=== PATIENT | female | born 1990 | race Caucasian/White ===

== ENCOUNTER 2021-07-03 13:17 | Emergency (ER) | payer OTHER, SELFPAY ==
[2021-07-03 13:22] VITALS: BP 112/82; PULSE 99; RESP 18; TEMP 36.8; O2SAT 99
--- NOTE | 2021-07-03 13:22 | XR_ITS ---
WS: [id number] Exam: XR hand LT min 3V* [id number] Date/Time of Exam: 07/03/2021 1:22 PM Reason For Exam: injury There has been amputation of the distal end of the fifth finger to include the soft tissues and a sma ll portion of the distal tuft of the distal phalanx. No other bony injury is noted. No dislocation. XR/XR hand LT min 3V* [id number] IMPRESSION: 1. Amputation of the distal end of the fifth digit to include a tiny portion of the distal phalanx as well as the soft tissues.
--- NOTE | 2021-07-03 14:36 | W.ED.UPPEXIN ---
HPI - Extremity Injury (Upper) General: Chief Complaint: Wound/Laceration Stated Complaint: HAND INJURY Time Seen by Provider: 07/03/21 13:19 Source: patient Mode of arrival: EMS Limitations: no limitations History of Present Illness: Patient is a 30-year-old female presents to ED today for evaluation of a left fifth finger injury that she sustained just prior to arrival while at [facility]. Patient states she was in the restroom at [facility] and somehow the door slammed shut on her pinky finger causing a distal tip amputation. Tetanus is UTD. complaint: injury to: left and finger Onset (ago): hour(s) Place: other ([facility]) Relieving factors: none Context: laceration, crush and injury Associated symptoms: Reports no associated symptoms Review of Systems Musc: Reports: extremity pain (L 5th finger) Physical Exam Const: COMMON NORMALS: no acute distress, patient oriented x3, no limitations and alert Extremity: GENERAL: Yes normal exam except as noted LEFT UPPER EXTREMITY: Yes hand & digits (see below) Left hand and digits: Yes neurovascular exam (normal) OTHER: pt has an amputation of the distal portion of her L 5th finger; amputation involves most of palmar pad of finger and nail; her nail is intact and ripped from her nail fold; nail fold and nail bed without damage Neuro: COMMON NORMALS: patient oriented x3, moves all extremities, no focal motor deficits and no sensory deficits noted SENSORIUM/ORIENTATION: Yes alert Procedures Laceration Laceration 1: Site: hand (L 5th finger) Side (If applicable): left Size (cm): 1.5 Description: other (distal finger tip amputation) Depth: [id number] Local Anesthetic: lidocaine 1% (digital block) and bupivacaine 0.25% Amount of anesthesia used (mL): 3.0 Pre-repair: wound explored and irrigated extensively Skin layer closed with: nylon and vicryl (one vicry to anchor nail) Size (cm): 4-0 Number of sutures: 6 Technique: simple, interrupted Technique: simple, interrupted Course Vital Signs: Vital signs: Vital Signs Temperature 98.2 F 07/03/21 13:22 Pulse Rate 99 07/03/21 13:22 Respiratory Rate 18 07/03/21 13:22 Blood Pressure 112/82 07/03/21 13:22 Pulse Oximetry 99 07/03/21 13:22 MDM - Extremity Injury (Upper) Medical Decision Making Patient initially evaluated by Dr. Azevedo and care transferred to me as I would be performing reattachment of distal tip. XR shows scant bony involvement of distal tip. Discussed with patient options as far as attempting reattachment or leaving as is and having ortho/hand perform flap. Patient states she would like to attempt reattachment at this time. She was given IV abx here. Distal tip reattached with good cosmetic results at this time. Distal tip did look like it coud be viable. She is traveling back home to [place] today. Recommend prompt follow up with PCP for referral to ortho/hand for follow up. Will write for abx/pain meds. Wound care discussed at home. Lab Data Radiology Impressions Hand X-Ray 07/03/21 13:22 IMPRESSION: 1. Amputation of the distal end of the fifth digit to include a tiny portion of the distal phalanx as well as the soft tissues. Discharge Plan Discharge Patient Disposition: Home Clinical Impression: Partial traumatic amputation of left little finger through phalanx Qualifiers: Encounter type: initial encounter Qualified Code(s): S68.627A - Partial traumatic transphalangeal amputation of left little finger, initial encounter Condition: Stable Prescriptions: New hydrocodone-acetaminophen 5-325 mg tablet 1 tab PO .q4-6 PRN (Reason: pain) Qty: 14 0RF cephalexin 500 mg capsule 500 mg PO Q6H 7 Days Qty: 28 0RF Discharge Orders: Discharge ED (Routine); Ordered 07/03/21 Ordered By: Farzana Montero Patient Instructions: Finger Amputation (ED), Finger Laceration (ED), Opioid Safety Activity Restrictions/Additional Instructions: Keep wound/laceration clean with warm soap and water twice daily. Monitor for signs of infection such as redness, swelling, increased pain, or drainage. Please seek medical re-evaluation if these occur. If you received sutures today these will need to be removed (unless you were told by the provider that they are absorbable). The provider should have discussed with you the length of time until removal. As we discussed please follow-up with your primary care provider as soon as you return home for a referral to an orthopedic or hand surgeon for further evaluation. Coding Level of Care Code ED Type Caster for Almaz Kohler
[2021-07-03] MEDS: neomycin-poly-bacitracin oint 0.9 gm Pkt 1 APPLIC TOPICAL (14:46)
== END 2021-07-03 15:47 | disposition home or self-care (01) ==
PROVIDERS: Emergency Provider Physician Assistant
DX: S68.627A Partial traumatic transphalangeal amputation of left little finger, initial encounter (principal); W23.0XXA Caught, crushed, jammed, or pinched between moving objects, initial encounter
CPT/HCPCS: 12001; 73130; 96365; 99283; A6446; J0690; J3490